=== PATIENT | male | born 1990 | race Two or more races ===

== ENCOUNTER 2025-02-11 13:04 | Emergency (ER) | payer OTHER ==
[~2025-02-11] VITALS: Ht 177.8 cm; Wt 49.9 kg
[~2025-02-11 13:04] MED LIST: BACTROBAN OINT22 GM TP; CATAFLAM50 MG PO; KETO10TA2 PO; LEVAQUIN500 MG PO
[2025-02-11] MEDS ORDERED: ACETAMINOPHEN 500 MG GEL..CAP PO STA (15:59)
[2025-02-11 16:35] LABS: BASO % 0.5 % (0.1-1.2); EOS # 0.06 (0.04-0.54); EOS % 1.0 % (0.7-7.0); LYMPH # 1.75 (1.18-3.74); LYMPH % 28.7 % (19.3-53.1); MEAN PLATELET VOLUME 9.70 fl (9.4-12.4); MONO # 0.77 (0.24-0.82); NEUT # 3.47 (1.56-6.13); NEUT % 56.9 % (34.0-71.1); RED CELL DISTRIBUTION WIDTH 12.3 % (11.6-14.4)
[2025-02-11 16:36] LABS: MONO % 12.6 % (4.7-12.5)
[2025-02-11 16:39] LABS: ERYTHROCYTE SEDIMENTATION RATE 11 mm/hr (0-15)
[2025-02-11 17:04] LABS: URINE APPEARANCE Clear; URINE BILIRRUBIN Negative (NEGATIVE); URINE BLOOD Negative; URINE COLOR Dark Yellow; URINE GLUCOSE Negative (NEGATIVE); URINE KETONE 15 (NEGATIVE); URINE LEUKOCYTE Negative; URINE NITRATE Negative; URINE UROBILINOGEN 1.0 E.U./dl
[2025-02-11 17:08] LABS: URINE BACTERIA 14.8 uL (0.0-1933); URINE CAST 6.23 uL (0.0-1.40); URINE EPITHELIAL CELLS 32.6 uL (0.0-38.8); URINE RBC 7.7 uL (0.0-20.8); URINE WBC 8.5 uL (0.0-23.2)
[2025-02-11 17:09] LABS: ALT/SGPT 52.0 U/L (12-78); AST/SGOT 37.0 U/L (15-37); BILIRUBIN TOTAL 0.34 mg/dL (0.3-1.2); BUN CREA RATIO 13.0 (7.0-25.0); CREATININE SERUM 1.1 mg/dL (0.70-1.30); GFR 76.18; GLOBULINA 4.1 G/DL (2.4-3.5); GLUCOSE FASTING 97.0 mg/dL (65-100); OSMOLALITY SERUM 274.0 MOSM/KG (275-295)
[2025-02-11 17:32] LABS: URINE PROTEIN 100 (NEGATIVE)
[2025-02-11] MEDS ORDERED: OSEL75CA PO (18:23)
[2025-02-11] MEDS ORDERED: ZYNCOF 400-201 EACH PO (18:23)
[2025-02-11 20:51] LABS: COVID-19 AG NEGATIVE (NEGATIVE)
== END 2025-02-11 19:32 | disposition home or self-care (01) ==
LOC: ER 13:05
PROVIDERS: Physician Assistant Medical
DX: J10.1 Influenza due to other identified influenza virus with other respiratory manifestations (principal); B34.9 Viral infection, unspecified; Z20.822 Contact with and (suspected) exposure to COVID-19